=== PATIENT | female | born 1995 | race Caucasian/White ===

== ENCOUNTER → 2017-06-15 | Outpatient (CLI) | payer BC ==
--- NOTE | 2017-06-15 15:53 | US ---
EXAMINATION TYPE: US pelvis complete transvag DATE OF EXAM: 06/15/2017 COMPARISON: NONE CLINICAL HISTORY: Galactorrhea O92.6. Excessive bleeding, cycle lasted 2 months TECHNIQUE: TA/TV Date of LMP: April 2017 and ongoing EXAM MEASUREMENTS: Uterus: 8.0 x 5.2 x 3.6 cm Endometrial Stripe: 0.3 cm Right Ovary: 2.8 x 2.1 x 2.4 cm Left Ovary: 3.0 x 2.7 x 2.0 cm 1. Uterus: Anteverted wnl 2. Endometrium: IUD seen and in place, wnl 3. Right Ovary: follicles seen, wnl 4. Left Ovary: follicles seen, wnl 5. Bilateral Adnexa: wnl 6. Posterior cul-de-sac: wnl IMPRESSION: 1. No acute process. IUD noted in position.
== END ==
LOC: RADUSWWP 15:13
PROVIDERS: ATTEND Family Medicine
DX: N64.3 Galactorrhea not associated with childbirth (principal); N92.1 Excessive and frequent menstruation with irregular cycle; Z97.5 Presence of (intrauterine) contraceptive device
CPT/HCPCS: 76830; 76856

== ENCOUNTER 2018-12-08 21:13 | Emergency (ER) | payer BC, OTHER ==
[2018-12-08 21:36] VITALS: BP 126/82; PULSE 69; RESP 16; TEMP 98.7
[2018-12-08] MEDS ORDERED: PROPARACAINE 0.5% OPHTH DROPS 15 ML BTL RIGHT EYE STA (21:47)
[2018-12-08] MEDS ORDERED: ERYTHROMYCIN 5 MG/GM OPHTH OINT 3.5 GM TUBE RIGHT EYE STA (21:47)
--- NOTE | 2018-12-08 22:13 | ED ---
ENT HPI - General Chief complaint: ENT Stated complaint: Chemical-eye Time Seen by Provider: 12/08/18 21:45 Source: patient, family, RN notes reviewed, old records reviewed Mode of arrival: ambulatory Limitations: no limitations - History of Present Illness Initial comments: Patient is a 23 year old female whom presents today for evaluation for right eye pain after bleach splashed into her eye earlier this afternoon. Sh reports she flushed her eye. She reports no significant eye drainage, comppains of blurry vision of the eye. She does not wear contacts. - Related Data Home Medications Medication Instructions Recorded Confirmed Pedi Multivit No.25/Folic Acid 2 tab PO DAILY 04/08/16 04/08/16 [Flintstones Multivit Chew Tab] Previous Rx's Medication Instructions Recorded Acetaminophen-Codeine 300-30mg 1 - 2 each PO Q4HR PRN #30 tab 04/09/16 [Tylenol w/codeine #3] Docusate [Colace] 100 mg PO DAILY #30 capsule 04/09/16 Ibuprofen [Motrin] 600 mg PO Q6HR PRN #40 tab 04/09/16 Allergies Allergy/AdvReac Type Severity Reaction Status Date / Time No Known Allergies Allergy Verified 12/08/18 21:36 Review of Systems ROS Statement: Those systems with pertinent positive or pertinent negative responses have been documented in the HPI. ROS Other: All systems not noted in ROS Statement are negative. Past Medical History Past Medical History: Seizure Disorder Additional Past Medical History / Comment(s): Last seizure age 6 History of Any Multi-Drug Resistant Organisms: None Reported Additional Past Surgical History / Comment(s): eye surgery Past Anesthesia/Blood Transfusion Reactions: No Reported Reaction Past Psychological History: Anxiety, Depression Smoking Status: Never smoker Past Alcohol Use History: None Reported Past Drug Use History: None Reported General Exam - General Exam Comments Initial Comments: Well appearing 23 year old female, no distress. Limitations: no limitations General appearance: alert, in no apparent distress Head exam: Present: atraumatic, normocephalic, normal inspection Eye exam: Present: normal appearance, PERRL, EOMI, other (R eye has chemical eye burn on fluoresein eye exam with increase uptake in splash patter over medial eye. ). Absent: scleral icterus, conjunctival injection, periorbital swelling ENT exam: Present: normal exam, mucous membranes moist Neck exam: Present: normal inspection. Absent: tenderness, meningismus, lymphadenopathy Respiratory exam: Present: normal lung sounds bilaterally. Absent: respiratory distress, wheezes, rales, rhonchi, stridor Cardiovascular Exam: Present: regular rate, normal rhythm, normal heart sounds. Absent: systolic murmur, diastolic murmur, rubs, gallop, clicks GI/Abdominal exam: Present: soft, normal bowel sounds. Absent: distended, tenderness, guarding, rebound, rigid Extremities exam: Present: normal inspection, full ROM, normal capillary refill. Absent: tenderness, pedal edema, joint swelling, calf tenderness Back exam: Present: normal inspection Neurological exam: Present: alert, oriented X3, CN II-XII intact Course Vital Signs 12/08/18 21:32 Temperature 98.7 F Pulse Rate 69 Respiratory 16 Rate Blood Pressure 126/82 O2 Sat by Pulse 100 Oximetry Medical Decision Making - Medical Decision Making Patient is a 23 year old female with chemical eye burn after bleached splashed into her eye. She has already flushed the eye. Patient has increased uptake in splash pattern over medial eye. Normal pressures of the eye with 21 bilaterally. Patient was given erythromycin eye ointment. Patient advised to follow up with Optho and given return prameters. Disposition Clinical Impression: Chemical burn of eyelid, right Disposition: HOME SELF-CARE Condition: Good Instructions (If sedation given, give patient instructions): Chemical Eye Rizvi (ED) Additional Instructions: apply the eye ointment to the eye every 4 hours. Follow-up with ophthalmology tomorrow. Return to the emergency department if any alarming signs or symptoms occur. Is patient prescribed a controlled substance at d/c from ED?: No Referrals: Olivia Menjivar DO [Primary Care Provider] - 1-2 days Amrit Coreas MD [STAFF PHYSICIAN] - 1-2 days Time of Disposition: 22:12
== END 2018-12-08 22:30 | disposition home or self-care (01) ==
LOC: EC 21:13 → SUPCPDRO 21:13 → EC 22:30
DX: T54.91XA Toxic effect of unspecified corrosive substance, accidental (unintentional), initial encounter (principal); T26.51XA Corrosion of right eyelid and periocular area, initial encounter; Z98.890 Other specified postprocedural states
CPT/HCPCS: 99283